=== PATIENT | male | born 1990 | race Caucasian/White ===

== ENCOUNTER 2016-07-14 16:11 | Emergency (ER) | payer SELFPAY ==
[~2016-07-14] VITALS: Ht 172.7 cm; Wt 81.3 kg
[~2016-07-14 16:11] MED LIST: COLE1TAB2 PO; HYDR1TAB12 PO; KETO10TA PO; OMEP-110 PO; ONDA4TAB10 PO; ONDA4TAB7 PO; OXYC-302 PO; OXYC15TA PO; TRAM50TA2 PO
[2016-07-14 16:12] VITALS: BP 117/79
== END 2016-07-14 17:34 | disposition home or self-care (01) ==
LOC: ED 17:28
DX: R07.89 Other chest pain (principal)
CPT/HCPCS: 71020; 93005; 99284

== ENCOUNTER 2018-01-10 22:47 | Emergency (ER) | payer OTHER ==
[~2018-01-10] VITALS: Ht 172.7 cm; Wt 84.3 kg
[2018-01-10 22:48] VITALS: BP 115/79
[2018-01-10] MEDS ORDERED: IBUPROFEN 200 MG TABLET ONE (23:20)
[2018-01-10] MEDS ORDERED: IBUPROFEN 200 MG TABLET PO ONE (23:30)
== END 2018-01-10 23:36 | disposition home or self-care (01) ==
LOC: ED 23:10
DX: B34.9 Viral infection, unspecified (principal); K21.9 Gastro-esophageal reflux disease without esophagitis; Z87.891 Personal history of nicotine dependence
CPT/HCPCS: 99283

== ENCOUNTER 2018-03-25 23:52 | Emergency (ER) | payer OTHER ==
[~2018-03-25] VITALS: Ht 170.2 cm; Wt 88.0 kg
[2018-03-25 23:54] VITALS: BP 133/81
--- NOTE | 2018-03-26 00:48 | NUR ---
pt ambulated from lobby to room with steady gait.
--- NOTE | 2018-03-26 01:07 | NUR ---
pt d/c with d/c summary and scripts. all questions answered. pt ambulated to registration desk with steady gait for d/c home. pt denies any other needs pertaining to this visit.
== END 2018-03-26 01:11 | disposition home or self-care (01) ==
LOC: ED 03-26 01:00
DX: K64.4 Residual hemorrhoidal skin tags (principal)
CPT/HCPCS: 99283

== ENCOUNTER 2018-08-10 21:51 | Emergency (ER) | payer OTHER ==
[~2018-08-10] VITALS: Ht 170.2 cm; Wt 88.7 kg
[~2018-08-10 21:51] MED LIST changes: -HYDR1TAB12 PO; +HYDR1TAB13 PO
--- NOTE | 2018-08-10 22:10 | NUR ---
ASSUMED CARE OF PATIENT. PATIENT REPORTS CENTER ABD PAIN X3 DAYS. VS STABLE. DR SANCHEZ IN ROOM. BLANKET GIVEN. CALL LIGHT IN PLACE. WILL CONTINUE TO MONITOR.
[2018-08-10 22:27] LABS: BASOPHILS # (AUTO) 0.03 x10^3/uL (0-0.1); BASOPHILS % (AUTO) 0 % (0-1); EOSINOPHILS % (AUTO) 3 % (1-7); LYMPHOCYTES # (AUTO) 2.18 x10^3/uL (1-3.4); LYMPHOCYTES % (AUTO) 35 % (22-44); MD NO; MEAN CORPUSCULAR HEMOGLOBIN 28.6 pg (27.5-34.5); MEAN CORPUSCULAR HGB CONC 33.7 g/dL (33.2-36.2); MEAN CORPUSCULAR VOLUME 84.6 fL (81-97); MEAN PLATELET VOLUME 8.7 fL (7.4-10.4); MONOCYTES # (AUTO) 0.52 x10^3/uL (0.2-0.8); MONOCYTES % (AUTO) 8 % (2-9); NEUTROPHILS # (AUTO) 3.38 x10^3/uL (1.8-6.8); NEUTROPHILS % (AUTO) 54 % (42-75); PLATELET COUNT 196 x10^3/uL (130-400); RED BLOOD COUNT 5.21 x10^6/uL (4.38-5.82); RED CELL DISTRIBUTION WIDTH 12.4 % (9.4-14.8)
[2018-08-10] MEDS ORDERED: ONDANSETRON 2MG/ML, 2ML ONE (22:30)
[2018-08-10] MEDS ORDERED: ONDANSETRON 2MG/ML, 2ML IVPush ONE (22:30)
[2018-08-10] MEDS ORDERED: MORPHINE SULFATE 4 MG/ML, 1ML IVPush PRN (22:30)
[2018-08-10] MEDS ORDERED: MORPHINE SULFATE 4 MG/ML, 1ML ONE (22:30)
[2018-08-10] MEDS ORDERED: SODIUM CHLORIDE FLUSH 10ML SYR IVF ONE (22:30)
[2018-08-10 22:39] LABS: MICROSCOPIC NOT IND
[2018-08-10 22:39] LABS: ALANINE AMINOTRANSFERASE 49 U/L (12-78); ALBUMIN 3.8 g/dL (3.4-5.0); ANION GAP 6 mmol/L (5-15); CHLORIDE 111 mmol/L (98-107); CREATININE 1.03 mg/dL (0.7-1.3)
[2018-08-10 22:42] LABS: ALKALINE PHOSPHATASE 92 U/L (45-117); BILIRUBIN,TOTAL 0.5 mg/dL (0.2-1.0); TOTAL PROTEIN 7.3 g/dL (6.4-8.2)
[2018-08-10 22:43] LABS: CULTURE INDICATED? NO
--- NOTE | 2018-08-10 22:48 | NUR ---
PT ON PHONE IN ROOM. NO ACUTE DISTRESS NOTED. VS STABLE. CALL LIGHT IN PLACE. WILL CONTINUE TO MONITOR.
[2018-08-11 00:09] VITALS: BP 128/63
[2018-08-11] MEDS ORDERED: OMNIPAQUE 350 MG/ML, 100ML BOTTLE ONE (04:17)
== END 2018-08-11 00:20 | disposition home or self-care (01) ==
LOC: ED 23:03
DX: R10.33 Periumbilical pain (principal)
CPT/HCPCS: 36415; 74177; 80053; 81003; 83690; 85025; 96374; 96375; 99284; J2270; J2405; Q9967

== ENCOUNTER 2018-08-23 20:15 | Emergency (ER) | payer OTHER ==
[~2018-08-23] VITALS: Ht 167.6 cm; Wt 87.3 kg
[2018-08-23 20:16] VITALS: BP 129/76
[2018-08-23 21:25] LABS: MICROSCOPIC NOT IND
[2018-08-23 21:25] LABS: BASOPHILS # (AUTO) 0.03 x10^3/uL (0-0.1); BASOPHILS % (AUTO) 0 % (0-1); EOSINOPHILS # (AUTO) 0.18 x10^3/uL (0-0.4); EOSINOPHILS % (AUTO) 3 % (1-7); LYMPHOCYTES # (AUTO) 2.09 x10^3/uL (1-3.4); LYMPHOCYTES % (AUTO) 30 % (22-44); MD NO; MEAN CORPUSCULAR HEMOGLOBIN 27.6 pg (27.5-34.5); MEAN CORPUSCULAR HGB CONC 33.3 g/dL (33.2-36.2); MEAN CORPUSCULAR VOLUME 82.9 fL (81-97); MEAN PLATELET VOLUME 8.6 fL (7.4-10.4); MONOCYTES % (AUTO) 7 % (2-9); NEUTROPHILS # (AUTO) 4.18 x10^3/uL (1.8-6.8); NEUTROPHILS % (AUTO) 60 % (42-75); PLATELET COUNT 211 x10^3/uL (130-400); RED BLOOD COUNT 5.63 x10^6/uL (4.38-5.82); RED CELL DISTRIBUTION WIDTH 12.4 % (9.4-14.8)
[2018-08-23 21:29] LABS: CULTURE INDICATED? NO
[2018-08-23 21:36] LABS: ALBUMIN 3.9 g/dL (3.4-5.0); ANION GAP 6 mmol/L (5-15); CALCIUM 9.4 mg/dL (8.5-10.1); CHLORIDE 108 mmol/L (98-107); CREATININE 1.05 mg/dL (0.7-1.3)
[2018-08-23] MEDS ORDERED: NEOSPORIN OINT. PKT 1 PACKET ONE ×2 (22:15→22:16)
== END 2018-08-23 22:39 | disposition home or self-care (01) ==
LOC: ED 22:10
DX: S39.012A Strain of muscle, fascia and tendon of lower back, initial encounter (principal); M46.1 Sacroiliitis, not elsewhere classified; K21.9 Gastro-esophageal reflux disease without esophagitis; F17.210 Nicotine dependence, cigarettes, uncomplicated; X58.XXXA Exposure to other specified factors, initial encounter; Y93.89 Activity, other specified; Y92.89 Other specified places as the place of occurrence of the external cause; Y99.8 Other external cause status
CPT/HCPCS: 36415; 80048; 81003; 82040; 85025; 99283

== ENCOUNTER 2020-10-19 07:21 | Emergency (ER) | payer OTHER ==
[~2020-10-19] VITALS: Ht 170.2 cm; Wt 100.9 kg
[~2020-10-19 07:21] MED LIST changes: -OXYC-302 PO; -OXYC15TA PO; +OXYC15TA3 PO; +OXYC1TAB14 PO
--- NOTE | 2020-10-19 07:40 | NUR ---
PER PT, PELVIC ABDOMINAL PAIN STARTING AT 1500 YESTERDAY, TODAY PT REPORTS NOTING "[place]" COLORED URINE. "MY FRIEND HAD RHABDO" PT CONCERNED THIS IS RHABDO. PT DENIES INJURY OR RECENT FALLS.
[2020-10-19] MEDS ORDERED: SODIUM CHLORIDE FLUSH 10ML SYR IVF ONE (08:00)
[2020-10-19] MEDS ORDERED: SODIUM CHLORIDE 0.9% 1,000ML IVBOLUS ONE (08:00)
[2020-10-19 08:09] LABS: BASOPHILS % (AUTO) 1 % (0-1); EOSINOPHILS % (AUTO) 3 % (1-7); LYMPHOCYTES % (AUTO) 50 % (22-44); MEAN CORPUSCULAR HEMOGLOBIN 28.1 pg (27.5-34.5); MEAN CORPUSCULAR HGB CONC 33.5 g/dL (33.2-36.2); MEAN PLATELET VOLUME 8.1 fL (7.4-10.4); MONOCYTES % (AUTO) 9 % (2-9); NEUTROPHILS % (AUTO) 37 % (42-75); PLATELET COUNT 243 x10^3/uL (130-400); RED BLOOD COUNT 5.34 x10^6/uL (4.38-5.82); RED CELL DISTRIBUTION WIDTH 13.3 % (9.4-14.8)
[2020-10-19 08:23] LABS: ALANINE AMINOTRANSFERASE 67 U/L (12-78); ALBUMIN 3.4 g/dL (3.4-5.0); ANION GAP 5 mmol/L (5-15); CALCIUM 8.8 mg/dL (8.5-10.1); CHLORIDE 111 mmol/L (98-107); CREATININE 0.91 mg/dL (0.7-1.3)
[2020-10-19 08:26] LABS: ALKALINE PHOSPHATASE 83 U/L (45-117); BILIRUBIN,TOTAL 0.3 mg/dL (0.2-1.0); CREATINE KINASE, TOTAL 508 U/L (39-308); TOTAL PROTEIN 7.1 g/dL (6.4-8.2)
--- NOTE | 2020-10-19 08:39 | NUR ---
PT AMBULATES WELL TO BATHROOM FOR UA. UA COLLECTED AND SENT. PT BACK IN BED, IVF INFUSING PER EMAR. VSS. SIDE RAIL UP. PT SITTING IN BED CONTINUOUSLY USING CELL PHONE. NAD NOTED.
[2020-10-19 08:52] LABS: MICROSCOPIC INDICATED
--- NOTE | 2020-10-19 09:25 | NUR ---
PT CHART UP FOR RECHECK. IVF INFUSION COMPLETED. NAD NOTED IN PT AT THIS TIME. PT CONTINUOUSLY USING CELL PHONE.
--- NOTE | 2020-10-19 10:47 | NUR ---
dr sebastian spoke with dr saucedo
--- NOTE | 2020-10-19 10:48 | NUR ---
PT LAYING BACK IN BED. NAD NOTED AT THIS TIME. RESPIRATIONS EVEN AND UNLABORED ON RA. SIDE RAILS UP, CALL LIGHT IN REACH. AWAITING CONSULT DISUSSION BETWEEN EDMD AND UROLOGY.
[2020-10-19 11:49] VITALS: BP 115/72
== END 2020-10-19 11:52 | disposition home or self-care (01) ==
LOC: ED 11:35
DX: N20.1 Calculus of ureter (principal); R31.9 Hematuria, unspecified; R74.8 Abnormal levels of other serum enzymes; F17.200 Nicotine dependence, unspecified, uncomplicated
CPT/HCPCS: 36415; 74176; 80053; 81001; 82550; 85025; 96360; 99285; J7030